=== PATIENT | male | born 1980 | race Caucasian/White ===

== ENCOUNTER 2023-09-18 16:22 | Outpatient (AMB) | payer OTHER, SELFPAY ==
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
== END 2023-09-18 16:24 | disposition home or self-care (01) ==
LOC: HO.HOP 16:22
PROVIDERS: Visit Provider Clinical Nurse Specialist Psychiatric/Mental Health
DX: F40.01 Agoraphobia with panic disorder (principal); F42.9 Obsessive-compulsive disorder, unspecified; F43.10 Post-traumatic stress disorder, unspecified
CPT/HCPCS: 99443

== ENCOUNTER → 2023-09-18 16:22 | Outpatient (BNVA) | payer OTHER, SELFPAY | PROVIDERS: Visit Provider Clinical Nurse Specialist Psychiatric/Mental Health ==

== ENCOUNTER 2023-10-22 11:11 | Outpatient (AMB) | payer OTHER, SELFPAY ==
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
== END 2023-10-22 12:15 | disposition home or self-care (01) ==
LOC: HO.HOP 11:11
PROVIDERS: PCP Internal Medicine; Visit Provider Clinical Nurse Specialist Psychiatric/Mental Health
DX: F40.01 Agoraphobia with panic disorder (principal); F42.2 Mixed obsessional thoughts and acts; F31.32 Bipolar disorder, current episode depressed, moderate; F41.0 Panic disorder [episodic paroxysmal anxiety]; F43.10 Post-traumatic stress disorder, unspecified
CPT/HCPCS: 99214

== ENCOUNTER → 2023-10-22 11:11 | Outpatient (BNVA) | payer OTHER, SELFPAY | PROVIDERS: PCP Internal Medicine; Visit Provider Clinical Nurse Specialist Psychiatric/Mental Health | DX: F40.01 Agoraphobia with panic disorder (principal); F42.9 Obsessive-compulsive disorder, unspecified; F42.2 Mixed obsessional thoughts and acts; F31.32 Bipolar disorder, current episode depressed, moderate; F43.10 Post-traumatic stress disorder, unspecified | CPT/HCPCS: 99212 ==

== ENCOUNTER 2023-11-20 09:53 | Outpatient (AMB) | payer OTHER, SELFPAY ==
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
== END 2023-11-20 11:17 | disposition home or self-care (01) ==
LOC: HO.HOP 09:53
PROVIDERS: PCP Internal Medicine; Visit Provider Clinical Nurse Specialist Psychiatric/Mental Health
DX: F42.2 Mixed obsessional thoughts and acts (principal); F43.10 Post-traumatic stress disorder, unspecified; F41.0 Panic disorder [episodic paroxysmal anxiety]
CPT/HCPCS: 99214

== ENCOUNTER → 2023-11-20 09:53 | Outpatient (BNVA) | payer OTHER, SELFPAY | PROVIDERS: PCP Internal Medicine; Visit Provider Clinical Nurse Specialist Psychiatric/Mental Health | DX: F42.2 Mixed obsessional thoughts and acts (principal); F43.10 Post-traumatic stress disorder, unspecified; F41.0 Panic disorder [episodic paroxysmal anxiety] | CPT/HCPCS: 99212 ==

== ENCOUNTER 2023-12-18 11:15 | Outpatient (AMB) | payer OTHER, SELFPAY ==
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
== END 2023-12-18 12:50 | disposition home or self-care (01) ==
LOC: HO.HOP 11:15
PROVIDERS: PCP Internal Medicine; Visit Provider Clinical Nurse Specialist Psychiatric/Mental Health
DX: F42.9 Obsessive-compulsive disorder, unspecified (principal); F43.10 Post-traumatic stress disorder, unspecified; F32.9 Major depressive disorder, single episode, unspecified
CPT/HCPCS: 99215

== ENCOUNTER → 2023-12-18 11:15 | Outpatient (BNVA) | payer OTHER, SELFPAY | PROVIDERS: PCP Internal Medicine; Visit Provider Clinical Nurse Specialist Psychiatric/Mental Health | DX: Z71.89 Other specified counseling (principal); F32.A Depression, unspecified; F43.10 Post-traumatic stress disorder, unspecified; F42.9 Obsessive-compulsive disorder, unspecified; Z91.51 Personal history of suicidal behavior; Z79.899 Other long term (current) drug therapy | CPT/HCPCS: 99212 ==

== ENCOUNTER 2024-01-01 11:01 | Outpatient (AMB) | payer OTHER, SELFPAY ==
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
== END 2024-01-01 11:42 | disposition home or self-care (01) ==
LOC: HO.HOP 11:01
PROVIDERS: PCP Internal Medicine; Visit Provider Clinical Nurse Specialist Psychiatric/Mental Health
DX: F41.0 Panic disorder [episodic paroxysmal anxiety] (principal); F43.11 Post-traumatic stress disorder, acute; F42.2 Mixed obsessional thoughts and acts
CPT/HCPCS: 99215

== ENCOUNTER → 2024-01-01 11:01 | Outpatient (BNVA) | payer OTHER, SELFPAY | PROVIDERS: PCP Internal Medicine; Visit Provider Clinical Nurse Specialist Psychiatric/Mental Health | DX: F41.0 Panic disorder [episodic paroxysmal anxiety] (principal); F43.10 Post-traumatic stress disorder, unspecified; F42.2 Mixed obsessional thoughts and acts | CPT/HCPCS: 99212 ==

== ENCOUNTER 2024-01-21 10:50 | Outpatient (AMB) | payer OTHER, SELFPAY ==
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
== END 2024-01-21 11:25 | disposition home or self-care (01) ==
LOC: HO.HOP 10:50
PROVIDERS: PCP Internal Medicine; Visit Provider Clinical Nurse Specialist Psychiatric/Mental Health
DX: F41.0 Panic disorder [episodic paroxysmal anxiety] (principal); F31.32 Bipolar disorder, current episode depressed, moderate; F43.10 Post-traumatic stress disorder, unspecified; F42.2 Mixed obsessional thoughts and acts
CPT/HCPCS: 99214

== ENCOUNTER → 2024-01-21 10:50 | Outpatient (BNVA) | payer OTHER, SELFPAY | PROVIDERS: PCP Internal Medicine; Visit Provider Clinical Nurse Specialist Psychiatric/Mental Health | DX: F31.32 Bipolar disorder, current episode depressed, moderate (principal); F41.0 Panic disorder [episodic paroxysmal anxiety]; F43.10 Post-traumatic stress disorder, unspecified; F42.2 Mixed obsessional thoughts and acts; F42.9 Obsessive-compulsive disorder, unspecified; Z91.51 Personal history of suicidal behavior | CPT/HCPCS: 99212 ==

== ENCOUNTER 2024-02-18 11:28 | Outpatient (AMB) | payer OTHER, SELFPAY ==
--- OUTSIDE RECORDS SUMMARY | 2024-02-18 11:30 | XMS_ITS | Continuity of Care Document ---
Author Organization [facility] ter Address [address] [place] [id number]- Care Team Providers Care Poker Prop Player Name Role Phone Randall Rodriguez MD Primary Care Physician [phone] Encounter [facility] [place] Date(s): 02/01/24 - 02/02/[address] [address]- Encounter Diagnosis Alcohol intoxication(Final) - 02/02/24 Discharge Disposition: A-D/C Home Attending Physician: Nery Sofia MD Admitting Physician: Nery Sofia MD Referring Physician: Not on Staff, Referring MD Allergies, Adverse Reactions, Alerts Substance Reaction Severity Status Tylenol 1 Active 1FOAMY MUCUS VOMITING Vital Signs Most recent to oldest [Reference Range]: 1 Oxygen Saturation [94-100 %] 98 % (02/01/24 11:22 PM) Pulse Rate [55-90 bpm] 97 bpm *H* (02/01/24 11:22 PM) Blood Pressure [90-138/55-84 mm Hg] 133/ 84mm Hg (02/01/24 11:22 PM) Respiratory Rate [16-30 br/min] 20 br/mi n (02/01/24 11:22 PM) Temperature [96.8-100.4 DegF] 98.4 DegF (02/01/24 11:22 PM) Mode of Delivery (Oxygen) Room air (02/01/24 11:22 PM) Temperature Route Oral (02/01/24 11:22 PM) Note * Nery Sofia MD: PERFORM, SIGN, VERIFY Event Display: Patient Education Handout Authored Date: * Nery Sofia MD: PERFORM Event Display: Patient Education Leaflets Authored Date: Understanding Asthma and Other Health Conditions ?? DM500 Understanding Asthma and Other Health Conditions Some health problems happen more often in people with asthma. The problems can make asthma symptomsworse. Symptoms can be harder to control. Talk with your healthcare provider about how other healthproblems might be affecting your asthma. And ask your healthcare provider for help quitting if you do smoke. Smoking makes your asthma and other health problems worse. Upper respiratory problems Problems with your nose, sinuses, or throat can make your asthma symptoms worse. These upper respiratory problems can include a cold, sore throat, and the flu. You can help to prevent these illnesses by washing your hands often. Also try to stay away from people who are sick. You and others around you should cover your nose and mouth when coughing or sneezing. You can also use a hand casting cleaner. Make sure that has at least 60% alcohol in it if you can't washyour hands with soap and water. Many offices and businesses have them available for use. You can also keep small bottles at work, in your car, or in your purse. And stay up-to-date on vaccines, as directed by your healthcare provider. Get a flu shot every year. Many people with asthma also have long-term problems with their nose (rhinitis) or sinuses (chronicsinusitis). These problems can give you a runny or stuffy nose, sneezing, sore throat, or coughing.Or even a headache. These problems may also make your asthma worse. The symptoms may be from infections or allergies. (See Allergies below.) Tell your healthcare provider if you have any of these symptoms. There are medicines and other treatments available. ?? Lower respiratory problems Some long-term (chronic) lower respiratory problems that can affect asthma include COPD (chronic obstructive pulmonary disease), bronchopulmonary aspergillosis, and vocal cord dysfunction. Conditions in children that could be linked to asthma include: ??? RSV (respiratory syncytial virus) ??? Breathing in an object that gets stuck in the airways or lungs. This is called foreign object aspiration. ??? Bronchopulmonary dysplasia. This is a chronic lung condition that is often due to being born prematurely. ??? Cystic fibrosis Talk with your healthcare provider if you were diagnosed with any of these health conditions as an adult or as a child. Ask about available treatments to help manage asthma. ?? Allergies Asthma may be set off by allergies. Allergies are caused by things in the environment that you breathe in. These are called allergens. The allergens that cause asthma in some people are commonly found indoors and outdoors. For example, some people are allergic to dust, animals, or insects. The bestthing you can do is try to stay away from those things that make your asthma worse. That isn't easy. Your healthcare provider may advise allergy testing. This can help you learn what is causing your asthma to get worse. Talk with your provider if allergies are found. They can help you figure out ways to reduce your contact with your allergens. They can also discuss treatment choices for allergic a sthma. ?? Acid reflux Many people with asthma also have acid reflux. This is also called gastroesophageal reflux disease (GERD). GERD occurs when stomach acid backs up in the tube that carries food to the stomach (the esophagus). This acid can irritate your airways. The symptoms of GERD may be heartburn, a sour taste, co ughing, or a hoarse voice. Symptoms may be worse at night if you have asthma. Your healthcare provider can advise treatment. This may include changes in your diet. Or in your medicine. ?? Being overweight Asthma may be worse in people who are overweight. Losing weight may help ease your asthma symptoms.It is also a hard thing to do. Your healthcare provider can advise treatment to help you lose weight. Important parts of a plan to reach a health weight include making healthy food choices and exercising every day. Having emotional support from friends and family is important too. ?? Obstructive sleep apnea Obstructive sleep apnea is a blockage in the airways. It causes trouble breathing during sleep. People with obstructive sleep apnea often snore very loudly. They sound like they stop breathing while they sleep. They also feel tired during the day. This is true even if they slept at night. It's morecommon in people who are overweight. But it can happen to anyone. It is also linked to some serioushealth problems. And it may be present in people with asthma that's hard to control. You may need tests to see if your symptoms are from asthma, obstructive sleep apnea, or both. ?? Stress and depression Stress and depression can both make asthma harder to manage. Talk with your healthcare provider if you are having trouble dealing with stress. Also talk with your provider if you are having symptoms of depression. You can???t get rid of all stress. But you can learn to manage it better. Many treatments can help depression. These can include counseling and medicines. ?? Last Reviewed Date: 2023 ?? [employer]. All rights reserved. This information is not intended as a substitute for professional medical care. Always follow your healthcare professional's instructions. ?? * Kimberlyn FRIEDMAN, Nery Beal: PERFORM Event Display: Patient Education Leaflets Authored Date: [id number] Alcohol Intoxication ?? [id number] Alcohol Intoxication Alcohol intoxication is very serious. It occurs when you drink alcohol faster than your liver can break it down. Severe intoxication is a medical emergency. It's also called alcohol overdose or alcohol poisoning. It can lead to . Here are some mares facts: ??? It can take 10 minutes or more??to start??to??feel the effects of a drink. So it's easy to drink more than you planned. Binge drinking can lead to an alcohol overdose. Binge drinking is having: o5 or more drinks over a short time for men o 4 or more drinks over a short time for women ??? One drink may be more than 1 serving of alcohol. In some cases, a drink can be 2 to 4 servings. This depends on the type of drink. ??? It takes about 1 hour for your body to break down 1 serving of alcohol. If you have more than 1 drink, it can take a few hours or more. ??? People with alcohol abuse disorders are more likely to get alcohol poisoning. But it can happen to anyone who drinks too much alcohol. Even a first-time drinker is at risk. ??? Many things affect how drinks will affect you. These include: o If you've eaten o How fast you drink o Your weight o How much you normally drink (or not)o Medicines you are taking o If you have a chronic disease o If you are male or female o How old you are Symptoms of alcohol intoxication Mild intoxication ??? Feel more relaxed, less tense ??? Slightly slurred speech ??? Sleepiness ??? Poor motor skills Moderate intoxication ??? Changing behavior, aggression, depression ??? Poor judgment ??? Confusion ??? Trouble focusing ??? Poor balance and coordination ??? Worsening slurred speech Severe intoxication ??? Vomiting ??? Seizures ??? Fainting or passing out (unconscious) ??? Cold, clammy skin ??? Slow or irregular breathing ??? Low body temperature (hypothermia) ??? Coma ?? Health effects Alcohol causes health problems.??This can happen after only drinking a little. There is no set number of drinks or amount of alcohol that's too much.??How much you drink at one time affects your health. And so does drinking often. Alcohol affects your whole body in these ways: ??? Brain.??Alcohol can harm parts of the brain that affect your balance, memory, thinking, and feelings. It can cause memory loss, blackouts, depression, agitation, sleep cycle changes, and seizures. These changes may or may not go away. ??? Heart and vascular system.??Alcohol can damage heart muscle. This can cause the heart muscle to weaken and stretch (cardiomyopathy). This can lead to: o Trouble breathing o Irregular heartbeat o Atrial fibrillation o Leg swelling o Heart failure Alcohol also makes the blood vessels stiffen. This causes high blood pressure. All of these problems raise your risk for heart attacks or strokes. ??? Liver.??Alcohol causes fat to build up in the liver. This affects how the liver works. And it raises the risk for hepatitis. This condition leads to belly pain, appetite loss, yellow skin and eyes (jaundice), and bleeding problems. It also leads to harmful changes in the liver. These include??liver fibrosis and cirrhosis. This can affect your ability to fight off infections. These liver changes stop it from removing toxins in your blood. This can cause a brain disease called encephalopathy. ??? Pancreas.??Alcohol can cause inflammation of the pancreas (pancreatitis). It can lead to belly pain, fever, and diabetes. ??? Immune system.??Alcohol weakens your immune system. This makes it harder to fight off infections and colds. You'll also have a higherrisk of some infections. ??? Cancer risk.??Alcohol raises your risk of some types of cancer. They include cancer of the: o Mouth o Esophagus o Pharynx o Larynx o Liver o Breast ? Sexual function.??Alcohol abuse can also lead to sexual problems. There is no safe level of alcohol use for people who are or thinking of getting . Alcohol use in may cause lifelong harm to the baby. So alcohol should be avoided. It can also cause a group of defects called alcohol spectrum disorder. These defects can include physical problems. And also behavior and learning problems. ?? Home care for alcohol intoxication Follow these tips to care for yourself at home: ??? Don't drink any more alcohol. ??? Don't drive??until all effects of the alcohol have worn off. ??? Don't use machinery that can cause injuries. ??? Get lots of rest over the next few days. ??? Drink plenty of water and other drinks that don't have alcohol. ??? Try to eat regular meals. If you have been drinking a lot every day, you may have alcohol withdrawal. Symptoms often last 3 to 4 days. They may include: ??? Nervousness ??? Shakiness ??? Nausea ??? Sweating ??? Sleeplessness They may also include severe, life-threatening symptoms. These are known as delirium tremens (DTs).DTs typically begin between 48 and 96 hours after the last drink and last 1 to 5 days. They include: ??? Seizures ??? Confusion ??? Seeing or hearing things that are not there (hallucinations) Alcohol withdrawal can cause . Call your healthcare provider before you stop drinking. This isespecially important if you've had DTs during past alcohol withdrawals. They may be able to help you with medicine. They can also refer you to an inpatient detox program. Or stay with family or friends who know when to call for medical help and can support you. If you have severe symptoms, call your provider or call 911 for help (see below). ?? Follow-up care These groups can help you and your loved one: ??? Alcoholics Anonymous (A.A.). Gives support through a self-help fellowship. ?? Find A.A. meetings near you at www.aa.org. ??? [employer]. ?? Gives support to families at www.al-anon.org . Or call 058-723-3496. ??? [employer] [facility] ( Self- Management and Recovery Training). A nationwide abstinence-oriented support group for people with addictive issues. This free program is focused on motivation to change, urge control, and living a balanced life. For more information and meetings near you, go to www.Biexdiao.com.org/ ??? Substance Abuse and Mental Health Services Administration ([facility]) Treatment Well Treatment Offsider. Free information on treatment resources in your area at https://findtreatment.gov/. Or call 977-253-7989. Call 911 Call 911 if any of these occur: ??? Trouble breathing or slow irregular breathing ??? Chest pain ??? Sudden weakness on 1 side of your body or sudden trouble speaking ??? Heavy bleeding or vomiting blood ??? Very sleepy or having trouble waking up ??? Fainting ??? Fast heart rate ??? Seizure ?? When to get medical advice Call your healthcare provider right away if any of these occur: ??? Severe shakiness? Fever of100.4??F (38??C) or higher, or as advised by your provider ??? Confusion or hallucinations ??? Painin your upper belly that gets worse ??? Repeated vomiting ?? Last Reviewed Date: 2021 ?? 9318-9911 The [employer]. All rights reserved. This information is not intended as a substitute for professional medical care. Always follow your healthcare professional's instructions. ?? Patient Care team information Care Team Personnel Name: Randall Rodriguez MD Position: S Physician - Primary Care Member Role: PCP Address: Address: [address] [place] [id number]
--- OUTSIDE RECORDS SUMMARY | 2024-02-18 11:30 | XMS_ITS | Continuity of Care Document ---
Author Organization [facility] ter Address [address] [place] [id number]- Care Team Providers Care Estate Agent Name Role Phone Randall Rodriguez MD Primary Care Physician [phone] Encounter [facility] [place] Date(s): 01/25/22 - 01/25/[address] [address]- Encounter Diagnosis Infected insect bite(Final) - 01/25/22 Discharge Disposition: A-D/C Home Attending Physician: Milton Mccoy MD Admitting Physician: Milton Mccoy MD Referring Physician: Not on Staff, Referring MD Allergies, Adverse Reactions, Alerts Substance Reaction Severity Status Tylenol 1 Active 1FOAMY MUCUS VOMITING Medications doxycycline hyclate 100 mg oral capsule 1 capsule = 100 mg, By Mouth, 2 times a day, for 7 days, # 14 capsule, 0 Refills, Acute 02/01/22 12:45:00 EDT, 01/25/22 12:45:00 EDT, Capsule, [id number], Partial fill upon patient request ifthe prescription is for a schedule II opioid drug. Start Date: 01/25/22 Stop Date: 02/01/22 Status: Ordered Vital Signs Most recent to oldest [Reference Range]: 1 2 3 Oxygen Saturation [94-100 %] 99 % (01/25/22 1:05 PM) 96 % (01/25/22 9:53 AM) 98 % (01/25/22 9:43 AM) Pulse Rate [55-90 bpm] 90 bpm (01/25/22 1:05 PM) 104 bpm *H* (01/25/22 9:53 AM) 133 bpm *H* (01/25/22 9:43 AM) Blood Pressure [90-138/55-84 mm Hg] 146/93mm Hg *H* (01/25/22 1:05 PM) 129/79mm Hg (01/25/22 9:53 AM) Respiratory Rate [16-30 br/min] 17 br/min (01/25/22 1:05 PM) 17 br/min (01/25/22 9:53 AM) Temperature [96.8-100.4 DegF] 98.6 DegF (01/25/22 1:05 PM) 98.7 DegF (01/25/22 9:53 AM) Mode of Delivery (Oxygen) Room air (01/25/22 1:05 PM) Room air (01/25/22 9:53 AM) Room air (01/25/22 9:43 AM) Blood pressure sites Arm, right (01/25/22 1:05 PM) Arm, right (01/25/22 9:53 AM) Temperature Route Oral (01/25/22 1:05 PM) Oral (01/25/22 9:53 AM)
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
== END 2024-02-18 11:39 | disposition home or self-care (01) ==
LOC: HO.HOP 11:28
PROVIDERS: PCP Internal Medicine; Visit Provider Clinical Nurse Specialist Psychiatric/Mental Health
DX: F41.0 Panic disorder [episodic paroxysmal anxiety] (principal); F43.10 Post-traumatic stress disorder, unspecified; F42.2 Mixed obsessional thoughts and acts
CPT/HCPCS: 99214

== ENCOUNTER → 2024-02-18 11:28 | Outpatient (BNVA) | payer OTHER, SELFPAY | PROVIDERS: PCP Internal Medicine; Visit Provider Clinical Nurse Specialist Psychiatric/Mental Health | DX: F32.A Depression, unspecified (principal); F41.0 Panic disorder [episodic paroxysmal anxiety]; F43.10 Post-traumatic stress disorder, unspecified; F42.2 Mixed obsessional thoughts and acts; F42.9 Obsessive-compulsive disorder, unspecified | CPT/HCPCS: 99212 ==

== ENCOUNTER 2024-03-12 11:19 | Outpatient (AMB) | payer OTHER, SELFPAY ==
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
== END 2024-03-12 12:26 | disposition home or self-care (01) ==
LOC: HO.HOP 11:20
PROVIDERS: PCP Internal Medicine; Visit Provider Clinical Nurse Specialist Psychiatric/Mental Health
DX: F31.32 Bipolar disorder, current episode depressed, moderate (principal); F41.0 Panic disorder [episodic paroxysmal anxiety]; F43.10 Post-traumatic stress disorder, unspecified; F42.2 Mixed obsessional thoughts and acts
CPT/HCPCS: 99214

== ENCOUNTER → 2024-03-12 11:19 | Outpatient (BNVA) | payer OTHER, SELFPAY | PROVIDERS: PCP Internal Medicine; Visit Provider Clinical Nurse Specialist Psychiatric/Mental Health | DX: F31.32 Bipolar disorder, current episode depressed, moderate (principal); F41.0 Panic disorder [episodic paroxysmal anxiety]; F43.10 Post-traumatic stress disorder, unspecified; F42.2 Mixed obsessional thoughts and acts | CPT/HCPCS: 99212 ==

== ENCOUNTER 2024-04-01 10:02 | Outpatient (AMB) | payer OTHER, SELFPAY ==
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
== END 2024-04-01 10:35 | disposition home or self-care (01) ==
LOC: HO.HOP 10:02
PROVIDERS: PCP Internal Medicine; Visit Provider Clinical Nurse Specialist Psychiatric/Mental Health
DX: F42.2 Mixed obsessional thoughts and acts (principal); F43.10 Post-traumatic stress disorder, unspecified; F31.32 Bipolar disorder, current episode depressed, moderate; F41.0 Panic disorder [episodic paroxysmal anxiety]
CPT/HCPCS: 99214

== ENCOUNTER → 2024-04-01 10:02 | Outpatient (BNVA) | payer OTHER, SELFPAY | PROVIDERS: PCP Internal Medicine; Visit Provider Clinical Nurse Specialist Psychiatric/Mental Health | DX: F31.32 Bipolar disorder, current episode depressed, moderate (principal); F42.2 Mixed obsessional thoughts and acts; F43.10 Post-traumatic stress disorder, unspecified; F41.0 Panic disorder [episodic paroxysmal anxiety] | CPT/HCPCS: 99212 ==

== ENCOUNTER 2024-04-29 09:57 | Outpatient (AMB) | payer OTHER, SELFPAY ==
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
== END 2024-04-29 10:49 | disposition home or self-care (01) ==
LOC: HO.HOP 09:57
PROVIDERS: PCP Internal Medicine; Visit Provider Clinical Nurse Specialist Psychiatric/Mental Health
DX: F31.32 Bipolar disorder, current episode depressed, moderate (principal); F41.0 Panic disorder [episodic paroxysmal anxiety]; F43.10 Post-traumatic stress disorder, unspecified; F42.2 Mixed obsessional thoughts and acts
CPT/HCPCS: 99214

== ENCOUNTER → 2024-04-29 09:57 | Outpatient (BNVA) | payer OTHER, SELFPAY | PROVIDERS: PCP Internal Medicine; Visit Provider Clinical Nurse Specialist Psychiatric/Mental Health | DX: F31.32 Bipolar disorder, current episode depressed, moderate (principal); F41.0 Panic disorder [episodic paroxysmal anxiety]; F43.10 Post-traumatic stress disorder, unspecified; F42.2 Mixed obsessional thoughts and acts | CPT/HCPCS: 99212 ==

== ENCOUNTER 2024-05-20 09:50 | Outpatient (AMB) | payer OTHER, SELFPAY ==
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
== END 2024-05-20 09:52 | disposition home or self-care (01) ==
LOC: HO.HOP 09:50
PROVIDERS: PCP Internal Medicine; Visit Provider Clinical Nurse Specialist Psychiatric/Mental Health
DX: F43.10 Post-traumatic stress disorder, unspecified (principal); F42.2 Mixed obsessional thoughts and acts; F41.0 Panic disorder [episodic paroxysmal anxiety]
CPT/HCPCS: 99214

== ENCOUNTER → 2024-05-20 09:50 | Outpatient (BNVA) | payer OTHER, SELFPAY | PROVIDERS: PCP Internal Medicine; Visit Provider Clinical Nurse Specialist Psychiatric/Mental Health | DX: F32.A Depression, unspecified (principal); F43.10 Post-traumatic stress disorder, unspecified; F42.2 Mixed obsessional thoughts and acts; F42.9 Obsessive-compulsive disorder, unspecified; F41.0 Panic disorder [episodic paroxysmal anxiety]; Z71.89 Other specified counseling; Z91.51 Personal history of suicidal behavior | CPT/HCPCS: 99212 ==

== ENCOUNTER 2024-06-17 09:10 | Outpatient (AMB) | payer OTHER, SELFPAY ==
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
== END 2024-06-17 10:03 | disposition home or self-care (01) ==
LOC: HO.HOP 09:10
PROVIDERS: PCP Internal Medicine; Visit Provider Clinical Nurse Specialist Psychiatric/Mental Health
DX: F41.0 Panic disorder [episodic paroxysmal anxiety] (principal); F43.10 Post-traumatic stress disorder, unspecified; F42.2 Mixed obsessional thoughts and acts; J38.3 Other diseases of vocal cords
CPT/HCPCS: 99214

== ENCOUNTER → 2024-06-17 09:10 | Outpatient (BNVA) | payer OTHER, SELFPAY | PROVIDERS: PCP Internal Medicine; Visit Provider Clinical Nurse Specialist Psychiatric/Mental Health | DX: F41.0 Panic disorder [episodic paroxysmal anxiety] (principal); F43.10 Post-traumatic stress disorder, unspecified; F42.2 Mixed obsessional thoughts and acts; J38.3 Other diseases of vocal cords | CPT/HCPCS: 99212 ==

== ENCOUNTER 2024-07-08 09:20 | Outpatient (AMB) | payer OTHER, SELFPAY ==
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
== END 2024-07-08 10:03 | disposition home or self-care (01) ==
LOC: HO.HOP 09:20
PROVIDERS: PCP Internal Medicine; Visit Provider Clinical Nurse Specialist Psychiatric/Mental Health
DX: F31.32 Bipolar disorder, current episode depressed, moderate (principal); F41.0 Panic disorder [episodic paroxysmal anxiety]; F43.10 Post-traumatic stress disorder, unspecified; F42.2 Mixed obsessional thoughts and acts
CPT/HCPCS: 99214

== ENCOUNTER → 2024-07-08 09:20 | Outpatient (BNVA) | payer OTHER, SELFPAY | PROVIDERS: PCP Internal Medicine; Visit Provider Clinical Nurse Specialist Psychiatric/Mental Health | DX: F31.32 Bipolar disorder, current episode depressed, moderate (principal); F41.0 Panic disorder [episodic paroxysmal anxiety]; F43.10 Post-traumatic stress disorder, unspecified; F42.2 Mixed obsessional thoughts and acts | CPT/HCPCS: 99212 ==

== ENCOUNTER 2024-07-21 09:11 | Outpatient (AMB) | payer OTHER, SELFPAY ==
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
== END 2024-07-21 09:53 | disposition home or self-care (01) ==
LOC: HO.HOP 09:11
PROVIDERS: PCP Internal Medicine; Visit Provider Clinical Nurse Specialist Psychiatric/Mental Health
DX: F31.32 Bipolar disorder, current episode depressed, moderate (principal); F41.0 Panic disorder [episodic paroxysmal anxiety]; F43.10 Post-traumatic stress disorder, unspecified; F42.2 Mixed obsessional thoughts and acts
CPT/HCPCS: 99214

== ENCOUNTER → 2024-07-21 09:11 | Outpatient (BNVA) | payer OTHER, SELFPAY | PROVIDERS: PCP Internal Medicine; Visit Provider Clinical Nurse Specialist Psychiatric/Mental Health | DX: F31.32 Bipolar disorder, current episode depressed, moderate (principal); F41.0 Panic disorder [episodic paroxysmal anxiety]; F43.10 Post-traumatic stress disorder, unspecified; F42.9 Obsessive-compulsive disorder, unspecified | CPT/HCPCS: 99212 ==

== ENCOUNTER → 2024-08-14 10:33 | Outpatient (BNVA) | payer OTHER, SELFPAY | PROVIDERS: PCP Internal Medicine; Visit Provider Clinical Nurse Specialist Psychiatric/Mental Health | DX: F31.32 Bipolar disorder, current episode depressed, moderate (principal); F43.10 Post-traumatic stress disorder, unspecified; F41.0 Panic disorder [episodic paroxysmal anxiety]; F42.2 Mixed obsessional thoughts and acts | CPT/HCPCS: 99212 ==

== ENCOUNTER 2024-09-16 10:14 | Outpatient (AMB) | payer OTHER, SELFPAY ==
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
--- OUTSIDE RECORDS SUMMARY | 2024-09-16 12:01 | XMS_ITS | Data Portability ---
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 Plan of Treatment Reminders Order Date Submit Date Provider Last Modified By Organization Details Last Modified Time Details Appointments None recorded . Lab None recorded . Referral speech therapy referral - Appt 06/13 @ 12pm 2023 024 [facility], [facility] [place], [address], 4 11:27:23 Procedures None recorded . Surgeries None recorded . Imaging None recorded . Medication Orders omeprazo le 20 mg capsule, delayed release 2023 024 [facility]/Pharmacy #[id number], [phone] [place], [address], 4 12:02:19 Patient TargetsNo targets recorded. Patient InstructionsNo instructions recorded. Reason for Referral Appt 06/13 @ 12pm Referring Physician: Tomás Askew, Otolaryngology, Encounter Date: 06/03/2024 Problems Name Problem SNOMED Code Status Onset Date Resolution Date Notes Provider Name and Address Organization Details Recorded Time Chronic hoarseness 6727873635860 Active 2023 TOMÁS Whyte MD 100 [facility] 100, [place], [address] [facility] [place] [facility] 4 11:52:35 Chronic laryngitis 37077796 Active 2023 TOMÁS Whyte MD [address] [address], [place], [address], [place] [facility] 4 11:55:40 Gastroesoph ageal reflux disease without esophagitis 337667694 Active 2023 TOMÁS Whyte MD [address] [address], [place], [address], [place] [facility] 12:00:10 Problem Notes None recorded. Procedures Surgical History Date Name Laterality Status Provider Name and Address Organization Details Recorded Time 06/03/2024 FFL_RE completed TOMÁS ASKEW MD [address], [address], [facility] 06/03/2024 10:29:17 01/29/2024 FFL_RE completed TOMÁS ASKEW MD [address] [place] [address], [address], [facility] - [facility] 01/29/2024 12:01:29 Imaging Results None recorded. Procedure Notes None recorded. Medical Equipment None Reported. Allergies No known drug allergies Medications Name Sig Start Date Stop Date Status Note LastModified by Organization Details LastModified Time clotrimazole 10 mg lianna HOLD 1 LIANNA IN MOUTH FIVE TIMES A DAY active Not Available Not Available No t Available buspirone 5 mg tablet TAKE 1 TABLET BY MOUTH TWICE A DAY active Not Available Not Available No t Available prednisone 5 mg tablet TAKE 2 TABLETS DAILY FOR 3 DAYS THEN ONE TABLET DAILY FOR 3 DAYS DIRECTED active Not Available Not Available No t Available valproic acid 250 mg capsule TAKE 1 CAPSULE BY MOUTH EVERY DAY active Not Available Not Available No t Available amitriptyline 25 mg tablet TAKE 1 TABLET BY MOUTH EVERYDAY AT BEDTIME active Not Available Not Available No t Available oseltamivir 75 mg capsule TAKE 1 CAPSULE BY MOUTH TWICE A DAY active Not Available Not Available No t Available omeprazole 20 mg capsule,delaye d release TAKE 1 CAPSULE BY MOUTH EVERY DAY active Not Available Not Available No t Available alprazolam 2 mg tablet TAKE 2 TABLETS BY MOUTH 3 TIMES A DAY FOR 14 DAYS active Not Available Not Available No t Available albuterol sulfate HFA 90 mcg/actuation aerosol inhaler INHALE 2 PUFFS BY MOUTH 4 TIMES DAILY NEEDED active Not Available Not Available No t Available fluticasone propionate 50 mcg/actuation nasal spray,suspensi on SPRAY 1 SPRAY INTO EACH NOSTRIL EVERY DAY active Not Available Not Available No t Available metronidazole 0.75 % topical gel APPLY A SMALL AMOUNT ONCE A DAY TO THE AFFECTED AREA ON THE FACE active Not Available Not Available No t Available loratadine 10 mg tablet TAKE 1 TABLET BY MOUTH ONCE A DAY NEEDED active Not Available Not Available No t Available rosuvastatin 5 mg tablet TAKE 1 TABLET BY MOUTH EVERYDAY AT BEDTIME active Not Available Not Available No t Available cholecalcifero l (vitamin D3) 50 mcg (2,000 unit) capsule TAKE 1 CAPSULE BY MOUTH EVERY DAY active Not Available Not Available No t Available Vitamin D3 50 mcg (2,000 unit) tablet TAKE 2 TABLETS BY MOUTH EVERY DAY active Not Available Not Available No t Available Wixela Inhub 500 mcg-50 mcg/dose powder for inhalation INHALE 1 PUFF BY MOUTH TWICE DAILY DIRECTED. RINSE MOUTH AFTER USE active Not Available Not Available No t Available Vitals Date Recorded Body height Body mass index (BMI) Body weight Provider Name and Address Organization Details Last Updated DateTime 01/29/2024 167.64 cm 27.4 kg/m2 40278.7 g Anjum Greene [facility] 01/29/2024 11:39:30 Date Recorded Body height Body mass index (BMI) Body weight Provider Name and Address Organization Details Last Updated DateTime 06/03/2024 167.64 cm 26 kg/m2 32558.37 g Anjum Greene [facility] 06/03/2024 10:04:52 Social History None recorded. Functional Status None recorded. Mental Status None recorded. Family History Nothing Reported. Medical History No medical history recorded. Gynecological HistoryNo gynecological history recorded. Obstetrics History GPAL:G 0 P 0 0 0 0 Past Encounters Encounter ID Performer Location Encounter Start Date Encounter Closed Date Diagnosis/Indication Diagnosis SNOMED-CT Code Diagnosis ICD10 Code Diagnosis Note [id number] TOMÁS ASKEW MD [facility] [address] [address] 01/29/2024 10:39:30 01/29/2024 12:26:38 Chronic hoarseness [id number] 105 R49.0 see below. will consider voice therapy if not improved. Chronic laryngitis 78964 006 J37.0 No lesions. Inflammati on noted of arytenoids and posterior pharyngeal wall. Will treat for reflux and reevaluate . Gastroesop hageal reflux disease without esophagitis 017377155 K21.9 Exam was benign. Laryngosco py showed [place] ing. I feel the symptoms are likely due to extra esophageal reflux disease. We will begin a six-week trial of omeprazole which was sent to their pharmacy. We will plan a follow up in 3-4 months to reassess. [id number] TOMÁS ASKEW MD [facility] [address] [address] 06/03/2024 09:49:39 06/03/2024 10:38:38 Chronic hoarseness 1207148192 105 R49.0 Laryngosco py normal. I will refer for voice therapy. Chronic laryngitis [address]164 006 J37.0 Appears improved. Gastroesop hageal reflux disease without esophagitis 836729987 K21.9 Throat pain has improved on omeprazole . He will continue omeprazole for now. Throat pain is likely due to EERD. Once he finishes his current course of omeprazole he should taper off. Health Concerns Section Related Observation LastModified by Organization Detai ls LastModified Time None Recorded Concern Status LastModified by Organization Details LastModified Time None Recorded Advance Directives Directive None Recorded Payers Encounter Date Sequence Insurance Name Policy Number Policy Douglass Covered Member ID Douglass Member ID Guarantor Name 01/29/2024 1 [facility] - [facility] [place] (MEDICARE REPLACEMENT/ADV ANTAGE - HMO) Eliazar Freeman [id number] Eliazar Freeman 06/03/2024 1 [facility] - DOS ON OR AFTER 2022 - [employer] (MEDICARE REPLACEMENT/ADV ANTAGE - HMO) Eliazar Freeman [id number] Eliazar Freeman Notes Date Note Type Note Provider Name and Address Organization Details Recorded Time 01/29/2024 text/html He noted some ac [place] voice change on 07/19. He had laryngitis. Since then the voice has been intermittently hoarse. He has some associated sore throat. He occasionally has some trouble swallowing with food getting stuck. He does not smoke. No recent flux even though he did have heartburn in the past. he was put on prednisone in the past which helped with his voice for 3 weeks. It is not inconsistent. TOMÁS ASKEW MD [address] [place] [address], [address], [place] [facility] 01/29/2024 12:02:19 06/03/2024 text/html He noted some ac [place] voice change on 07/19. He had laryngitis. Since then the voice has been intermittently hoarse. He has some associated sore throat. He occasionally has some trouble swallowing with food getting stuck. He does not smoke. No recent flux even though he did have heartburn in the past. he was put on prednisone in the past which helped with his voice for 3 weeks. It is not inconsistent. TOMÁS ASKEW MD [address] [place] [address],[address] [address], [place], [address], [facility] - [facility] 06/03/2024 10:37:33 OBGyn Episode No OBEpisode recorded.
== END 2024-09-16 10:15 | disposition home or self-care (01) ==
LOC: HO.HOP 10:14
PROVIDERS: PCP Internal Medicine; Visit Provider Clinical Nurse Specialist Psychiatric/Mental Health
DX: F41.0 Panic disorder [episodic paroxysmal anxiety] (principal); F43.10 Post-traumatic stress disorder, unspecified; F42.2 Mixed obsessional thoughts and acts
CPT/HCPCS: 99214

== ENCOUNTER → 2024-09-16 10:14 | Outpatient (BNVA) | payer OTHER, SELFPAY | PROVIDERS: PCP Internal Medicine; Visit Provider Clinical Nurse Specialist Psychiatric/Mental Health | DX: F41.0 Panic disorder [episodic paroxysmal anxiety] (principal); F43.10 Post-traumatic stress disorder, unspecified; F42.2 Mixed obsessional thoughts and acts; F42.9 Obsessive-compulsive disorder, unspecified | CPT/HCPCS: 99212 ==

== ENCOUNTER 2024-10-14 09:53 | Outpatient (AMB) | payer OTHER, SELFPAY ==
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
--- OUTSIDE RECORDS SUMMARY | 2024-10-14 11:23 | XMS_ITS | Data Portability ---
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 Plan of Treatment Reminders Order Date Submit Date Provider Last Modified By Organization Details Last Modified Time Details Appointments None recorded . Lab None recorded . Referral speech therapy referral - Appt 06/13 @ 12pm 2023 024 [facility], [facility] [place], [address], 4 11:27:23 Procedures None recorded . Surgeries None recorded . Imaging None recorded . Medication Orders omeprazo le 20 mg capsule, delayed release 2023 024 [facility]/Pharmacy #[id number], [phone] [place], [address], 4 12:02:19 Patient TargetsNo targets recorded. Patient InstructionsNo instructions recorded. Reason for Referral Appt 06/13 @ 12pm Referring Physician: Tomás Askew, Otolaryngology, Encounter Date: 06/03/2024 Problems Name Problem SNOMED Code Status Onset Date Resolution Date Notes Provider Name and Address Organization Details Recorded Time Chronic hoarseness 0855896295627 Active 2023 TOMÁS hWyte MD 100 [facility] 100, [place], [address] [facility] [place] - [facility] 4 11:52:35 Chronic laryngitis 43749265 Active 2023 TOMÁS Whyte MD [address] [address], [place], [address], [place] [facility] 11:55:40 Gastroesoph ageal reflux disease without esophagitis 498839111 Active 2023 TOMÁS Whyte MD [address] [address], [place], [address], [place] [facility] 12:00:10 Problem Notes None recorded. Procedures Surgical History Date Name Laterality Status Provider Name and Address Organization Details Recorded Time 06/03/2024 FFL_RE completed TOMÁS ASKEW MD [address], [address], [facility] 06/03/2024 10:29:17 01/29/2024 FFL_RE completed TOMÁS ASKEW MD [address], [address], [facility] - [facility] 01/29/2024 12:01:29 Imaging Results None recorded. Procedure [...] TAKE 1 CAPSULE BY MOUTH EVERY DAY 2024 active Not Available Not Available Not Avai lable alprazolam 2 mg tablet TAKE 2 TABLETS [...] Updated DateTime 01/29/2024 167.64 cm 27.4 kg/m2 70762.7 g Anjum Greene [facility] 01/29/2024 11:39:30 Date Recorded Body height Body mass index (BMI) Body weight Provider Name and Address Organization Details Last Updated DateTime 06/03/2024 167.64 cm 26 kg/m2 68447.37 g Anjum Greene [place] - [facility] 06/03/2024 10:04:52 Social History None recorded. Functional [...] Note [id number] TOMÁS ASKEW MD [facility] [address] [address] 01/29/2024 10:39:30 01/29/2024 12:26:38 Chronic hoarseness 5604848615 105 R49.0 see below. will consider voice therapy if not improved. Chronic laryngitis 31433 006 J37.0 No lesions. Inflammati on noted of arytenoids and posterior pharyngeal wall. Will treat for reflux and reevaluate . Gastroesop hageal reflux disease without esophagitis 525385536 K21.9 Exam was benign. Laryngosco py showed [place] ing. I feel the symptoms are likely due to extra esophageal reflux disease. We will begin a six-week trial of omeprazole which was sent to their pharmacy. We will plan a follow up in 3-4 months to reassess. [id number] TOMÁS ASKEW MD [facility] [address] [address] 06/03/2024 09:49:39 06/03/2024 10:38:38 Chronic hoarseness 3066140670 105 R49.0 Laryngosco py normal. I will refer for voice therapy. Chronic laryngitis 22051 006 J37.0 Appears improved. Gastroesop hageal reflux disease without esophagitis 215088807 K21.9 Throat pain has improved on omeprazole [...] Douglass Member ID Guarantor Name 01/29/2024 1 [employer] - [facility] [place] (MEDICARE REPLACEMENT/ADV ANTAGE - HMO) Eliazar Freeman [id number] Eliazar Freeman 06/03/[address] [facility] - DOS ON OR AFTER 2022 - ONE [employer] (MEDICARE REPLACEMENT/ADV ANTAGE - HMO) Eliazar Freeman [id number] Eliazar Freeman Notes Date Note Type Note Provider Name and Address Organization Details Recorded Time 01/29/2024 text/html He noted some ac eileen voice change on 07/19. He had laryngitis. [...] It is not inconsistent. TOMÁS ASKEW MD 100 [facility],[address], [address], [place] - [facility] 01/29/2024 12:02:19 06/03/2024 text/html He noted some ac eielen voice change on 07/19. He had laryngitis. [...] It is not inconsistent. TOMÁS ASKEW MD 100 [facility],[address] [address], [place], [address], [place] [facility] 06/03/2024 10:37:33 OBGyn Episode No OBEpisode recorded.
== END 2024-10-14 11:17 | disposition home or self-care (01) ==
LOC: HO.HOP 09:53
PROVIDERS: PCP Internal Medicine; Visit Provider Clinical Nurse Specialist Psychiatric/Mental Health
DX: F41.0 Panic disorder [episodic paroxysmal anxiety] (principal); F43.10 Post-traumatic stress disorder, unspecified; F42.2 Mixed obsessional thoughts and acts
CPT/HCPCS: 99214

== ENCOUNTER → 2024-10-14 09:53 | Outpatient (BNVA) | payer OTHER, SELFPAY | PROVIDERS: PCP Internal Medicine; Visit Provider Clinical Nurse Specialist Psychiatric/Mental Health | DX: F41.0 Panic disorder [episodic paroxysmal anxiety] (principal); F43.10 Post-traumatic stress disorder, unspecified; F42.2 Mixed obsessional thoughts and acts; Z71.89 Other specified counseling | CPT/HCPCS: 99212 ==

== ENCOUNTER 2024-11-11 09:37 | Outpatient (AMB) | payer OTHER, SELFPAY ==
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
--- OUTSIDE RECORDS SUMMARY | 2024-11-11 10:36 | XMS_ITS | Data Portability ---
Author Organization [place] - [facility], Allergy Address [address] [place] [address] Care Team Providers Care Analytical Sciences Director Name Role Phone DICKSON CHU Primary Care Provider [phone] Assessment No assessment recorded. Plan of Treatment Reminders Order Date Submit Date Provider Last Modified By Organization Details Last Modified Time Details Appointments None recorded . Lab None recorded . Referral speech therapy referral - Appt 06/13 @ 12pm 2023 024 [facility], [facility] Isabelle Acuña, [address] Floor, [place], [address], 4 11:27:23 Procedures None recorded . Surgeries None recorded . Imaging None recorded . Medication Orders omeprazo le 20 mg capsule, delayed release 2023 024 [facility]/Pharmacy #[id number], [phone] [place], [address], 4 12:02:19 Patient TargetsNo targets recorded. Patient InstructionsNo instructions recorded. Reason for Referral Appt 06/13 @ 12pm Referring Physician: Tomás Askew, Otolaryngology, Encounter Date: 06/03/2024 Problems Name Problem SNOMED Code Status Onset Date Resolution Date Notes Provider Name and Address Organization Details Recorded Time Chronic hoarseness 7249089229035 Active 2023 TOMÁS Whyte MD [address], [address] [facility] [place] - [facility] 4 11:52:35 Chronic laryngitis 18455612 Active 2023 TOMÁS Whyte MD [address] [address], [place], [address], [facility] - [facility] [place] 11:55:40 Gastroesoph ageal reflux disease without esophagitis 973880462 Active 2023 TOMÁS Whyte MD [address] [address], [place], [address], [facility] - [facility] [place] 12:00:10 Problem Notes None recorded. Procedures Surgical History Date Name Laterality Status Provider Name and Address Organization Details Recorded Time 06/03/2024 FFL_RE completed TOMÁS ASKEW MD [address] [place] [address], [phone], [facility] [place] 06/03/2024 10:29:17 01/29/2024 FFL_RE completed TOMÁS ASKEW MD [address] [place] [address], [phone], [facility] 01/29/2024 12:01:29 Imaging Results None recorded. [...] Updated DateTime 01/29/2024 167.64 cm 27.4 kg/m2 29756.7 g Anjum Greene [facility] 01/29/2024 11:39:30 Date Recorded Body height Body mass index (BMI) Body weight Provider Name and Address Organization Details Last Updated DateTime 06/03/2024 167.64 cm 26 kg/m2 30767.37 g Anjum Greene [facility] 06/03/2024 10:04:52 Social History None recorded. [...] Note [id number] TOMÁS ASKEW MD [facility] [address] [address] 01/29/2024 10:39:30 01/29/2024 12:26:38 Chronic hoarseness [id number] 105 R49.0 see below. will consider voice therapy if not improved. Chronic laryngitis 79449 006 J37.0 No lesions. Inflammati on noted of arytenoids and posterior pharyngeal wall. Will treat for reflux and reevaluate . Gastroesop hageal reflux disease without esophagitis [id number] K21.9 Exam was benign. Laryngosco py showed [place] ing. I feel the symptoms are likely due to extra esophageal reflux disease. We will begin a six-week trial of omeprazole which was sent to their pharmacy. We will plan a follow up in 3-4 months to reassess. [id number] TOMÁS ASKEW MD [facility] [address] [address] 06/03/2024 09:49:39 06/03/2024 10:38:38 Chronic hoarseness [id number] 105 R49.0 Laryngosco py normal. I will refer for voice therapy. Chronic laryngitis 19863 006 J37.0 Appears improved. Gastroesop hageal reflux disease without esophagitis [id number] K21.9 Throat pain has improved on omeprazole [...] Guarantor Name 01/29/2024 1 [employer] [facility] [place] [place] (MEDICARE [place]PLAC[place]/ADV ANTAGE - HMO) Eliazar Freeman [id number] Eliazar Freeman 06/03/2024 1 [facility] - DOS ON OR AFTER 2022 - ONE [employer] (MEDICARE REPLACEMENT/ADV ANTAGE - HMO) Eliazar Freeman [id number] Eliazar Freeman Notes Date Note Type Note Provider Name and Address Organization Details Recorded Time 01/29/2024 text/html He noted some ac [place] voice change on 07/19. He had laryngitis. [...] is not inconsistent. TOMÁS ASKEW MD 100 [facility],[address], [address], [place] - [facility] 01/29/2024 12:02:19 06/03/2024 text/html He noted some ac [place] voice change on 07/19. He had laryngitis. [...] is not inconsistent. TOMÁS ASKEW MD 100 [facility],[address] [address], [place], [address], [place] [facility] 06/03/2024 10:37:33 OBGyn Episode No OBEpisode recorded.
== END 2024-11-11 11:04 | disposition home or self-care (01) ==
LOC: HO.HOP 09:37
PROVIDERS: PCP Internal Medicine; Visit Provider Clinical Nurse Specialist Psychiatric/Mental Health
DX: F31.32 Bipolar disorder, current episode depressed, moderate (principal); F41.0 Panic disorder [episodic paroxysmal anxiety]; F43.10 Post-traumatic stress disorder, unspecified; F42.2 Mixed obsessional thoughts and acts
CPT/HCPCS: 99214

== ENCOUNTER → 2024-11-11 09:37 | Outpatient (BNVA) | payer OTHER, SELFPAY | PROVIDERS: PCP Internal Medicine; Visit Provider Clinical Nurse Specialist Psychiatric/Mental Health | DX: F31.32 Bipolar disorder, current episode depressed, moderate (principal); F41.0 Panic disorder [episodic paroxysmal anxiety]; F43.10 Post-traumatic stress disorder, unspecified; F42.9 Obsessive-compulsive disorder, unspecified; Z71.89 Other specified counseling | CPT/HCPCS: 99212 ==

== ENCOUNTER 2024-12-09 09:32 | Outpatient (AMB) | payer OTHER, SELFPAY ==
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
--- OUTSIDE RECORDS SUMMARY | 2024-12-09 10:27 | XMS_ITS | Data Portability ---
Author Organization [place] - [facility], Allergy Address [address] [place] [address] Care Team Providers Care Computer Numerical Control Operator Name Role Phone DICKSON CHU Primary Care Provider Assessment No assessment recorded. Plan of Treatment Reminders Order Date Submit Date Provider Last Modified By Organization Details Last Modified Time Details Appointments None recorded . Lab None recorded . Referral speech therapy referral - Appt 06/13 @ 12pm 2023 024 [facility], [facility] Isabelle Acuña, [address], [place], [address], 4 11:27:23 Procedures None recorded . Surgeries None recorded . Imaging None recorded . Medication Orders omeprazo le 20 mg capsule, delayed release 2023 024 [facility]/Pharmacy #[id number], [phone] [place], [address], 4 12:02:19 Patient TargetsNo targets recorded. Patient InstructionsNo instructions recorded. Reason for Referral Appt 06/13 @ 12pm Referring Physician: Tomás Askew, Otolaryngology, Encounter Date: 06/03/2024 Problems Name Problem SNOMED Code Status Onset Date Resolution Date Notes Provider Name and Address Organization Details Recorded Time Chronic hoarseness 8979884254227 Active 2023 TOMÁS Whyte MD [address], [address] [place] - [facility] 4 11:52:35 Chronic laryngitis 78580538 Active 2023 TOMÁS Whyte MD [address] [address], [place], [address], [facility] - [facility] [place] 11:55:40 Gastroesoph ageal reflux disease without esophagitis 291776287 Active 2023 TOMÁS Whyte MD [address] [address], [place], [address], [facility] - [facility] [place] 12:00:10 Problem Notes None recorded. Procedures Surgical History Date Name Laterality Status Provider Name and Address Organization Details Recorded Time 06/03/2024 FFL_RE completed TOMÁS ASKEW MD [address] [place] [address], [phone], [facility] [place] 06/03/2024 10:29:17 01/29/2024 FFL_RE completed TOMÁS ASKEW MD [address] [place] [address], [phone], [facility] 01/29/2024 12:01:29 Imaging Results None recorded. [...] Updated DateTime 01/29/2024 167.64 cm 27.4 kg/m2 89244.7 g Anjum Greene [facility] 01/29/2024 11:39:30 Date Recorded Body height Body mass index (BMI) Body weight Provider Name and Address Organization Details Last Updated DateTime 06/03/2024 167.64 cm 26 kg/m2 95191.37 g Anjum Greene [facility] 06/03/2024 10:04:52 Social History None recorded. [...] Note [id number] TOMÁS ASKEW MD [facility] [address] [address] 01/29/2024 10:39:30 01/29/2024 12:26:38 Chronic hoarseness [id number] 105 R49.0 see below. will consider voice therapy if not improved. Chronic laryngitis 53244 006 J37.0 No lesions. Inflammati on noted of arytenoids and posterior pharyngeal wall. Will treat for reflux and reevaluate . Gastroesop hageal reflux disease without esophagitis 183630692 K21.9 Exam was benign. Laryngosco py showed [place] ing. I feel the symptoms are likely due to extra esophageal reflux disease. We will begin a six-week trial of omeprazole which was sent to their pharmacy. We will plan a follow up in 3-4 months to reassess. [id number] TOMÁS ASKEW MD [facility] [address] [address] 06/03/2024 09:49:39 06/03/2024 10:38:38 Chronic hoarseness 8412092663 105 R49.0 Laryngosco py normal. I will refer for voice therapy. Chronic laryngitis 34523 006 J37.0 Appears improved. Gastroesop hageal reflux disease without esophagitis 293081619 K21.9 Throat pain has improved on omeprazole . He will continue omeprazole for now. Throat pain is likely due to EERD. Once he finishes his current course of omeprazole he should taper off. Health Concerns Section Related Observation LastModified by Organization Detai ls LastModified Time None Recorded Concern Status LastModified by Organization Details LastModified Time None Recorded Advance Directives Directive None Recorded Payers Insurance Date Sequence Insurance Name Policy Number Policy Douglass Covered Member ID Douglass Member ID Guarantor Name 06/03/2024 1 [facility] - DOS ON OR AFTER 2022 - ONE CARE (MEDICARE REPLACEMENT/ADV ANTAGE - HMO) Eliazar Freeman [id number] Eliazar Freeman 02/02/2024 1 [facility] IPA - [facility] (MEDICARE REPLACEMENT/ADV ANTAGE - HMO) Eliazar Freeman [id number] Eliazar Freeman Notes Date Note Type Note Provider Name and Address Organization Details Recorded Time 01/29/2024 text/html He noted some ac [place] voice change on 07/19. He had laryngitis. [...] is not inconsistent. TOMÁS ASKEW MD 100 [facility],[address], [address], [place] - [facility] 01/29/2024 12:02:19 06/03/2024 text/html He noted some ac [place] voice change on 07/19. He had laryngitis. [...] is not inconsistent. TOMÁS ASKEW MD 100 [facility],[address] [address], [place], [address], [place] [facility] 06/03/2024 10:37:33 OBGyn Episode No OBEpisode recorded.
== END 2024-12-09 12:06 | disposition home or self-care (01) ==
LOC: HO.HOP 09:32
PROVIDERS: PCP Internal Medicine; Visit Provider Clinical Nurse Specialist Psychiatric/Mental Health
DX: F31.32 Bipolar disorder, current episode depressed, moderate (principal); F41.0 Panic disorder [episodic paroxysmal anxiety]; F43.10 Post-traumatic stress disorder, unspecified; F42.2 Mixed obsessional thoughts and acts
CPT/HCPCS: 99214

== ENCOUNTER → 2024-12-09 09:32 | Outpatient (BNVA) | payer OTHER, SELFPAY | PROVIDERS: PCP Internal Medicine; Visit Provider Clinical Nurse Specialist Psychiatric/Mental Health | DX: F31.32 Bipolar disorder, current episode depressed, moderate (principal); F41.0 Panic disorder [episodic paroxysmal anxiety]; F43.10 Post-traumatic stress disorder, unspecified; F42.2 Mixed obsessional thoughts and acts | CPT/HCPCS: 99212 ==

== ENCOUNTER 2025-01-15 09:37 | Outpatient (AMB) | payer OTHER, SELFPAY ==
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
--- OUTSIDE RECORDS SUMMARY | 2025-01-15 10:41 | XMS_ITS | Data Portability ---
Author Organization [place] - [facility], Allergy Address [address] [place] [address] Care Team Providers Care Product Marketing Specialist Name Role Phone DICKSON CHU Primary Care Provider Assessment No assessment recorded. Plan of Treatment Reminders Order Date Submit Date Provider Last Modified By Organization Details Last Modified Time Details Appointments None recorded . Lab None recorded . Referral speech therapy referral - Appt 06/13 @ 12pm 2023 024 [facility], [address], [address], [place], [address], 4 11:27:23 Procedures None recorded . Surgeries None recorded . Imaging None recorded . Medication Orders omeprazo le 20 mg capsule, delayed release 2023 024 [facility]/Pharmacy #[id number], [phone] [place], [address], 4 12:02:19 Patient TargetsNo targets recorded. Patient InstructionsNo instructions recorded. Reason for Referral Appt 06/13 @ 12pm Referring Physician: Tomás Askew, Otolaryngology, Encounter Date: 06/03/2024 Problems Name Problem SNOMED Code Status Onset Date Resolution Date Notes Provider Name and Address Organization Details Recorded Time Chronic hoarseness 8532967152203 Active 2023 TOMÁS Whyte MD [address] [address], [place], [address] [facility] [place] - [facility] 4 11:52:35 Chronic laryngitis 97346724 Active 2023 TOMÁS Whyte MD [address] [address], [place], [address], [facility] - [facility] 4 11:55:40 Gastroesoph ageal reflux disease without esophagitis 720390768 Active 2023 TOMÁS Whyte MD [address] [address], [place], [address], [facility] - [facility] 4 12:00:10 Problem Notes None recorded. Procedures Surgical History Date Name Laterality Status Provider Name and Address Organization Details Recorded Time 06/03/2024 FFL_RE completed TOMÁS ASKEW MD [address] [place] [address], [phone], [facility] 06/03/2024 10:29:17 01/29/2024 FFL_RE completed TOMÁS ASKEW MD [address] [place] [address], [phone], [facility] 01/29/2024 12:01:29 Imaging Results None recorded. [...] Updated DateTime 01/29/2024 167.64 cm 27.4 kg/m2 33966.7 g [facility] 01/29/2024 11:39:30 Date Recorded Body height Body mass index (BMI) Body weight Provider Name and Address Organization Details Last Updated DateTime 06/03/2024 167.64 cm 26 kg/m2 67247.37 g Anjum Greene [facility] 06/03/2024 10:04:52 Social History None recorded. [...] Note [id number] TOMÁS ASKEW MD [facility] [address] [address] 01/29/2024 10:39:30 01/29/2024 12:26:38 Chronic hoarseness 8801724241 105 R49.0 see below. will consider voice therapy if not improved. Chronic laryngitis 83979 006 J37.0 No lesions. Inflammati on noted of arytenoids and posterior pharyngeal wall. Will treat for reflux and reevaluate . Gastroesop hageal reflux disease without esophagitis [id number] K21.9 Exam was benign. Laryngosco py showed cobbleston ing. I feel the symptoms are likely due to extra esophageal reflux disease. We will begin a six-week trial of omeprazole which was sent to their pharmacy. We will plan a follow up in 3-4 months to reassess. [id number] TOMÁS ASKEW MD [facility] [address] [address] 06/03/2024 09:49:39 06/03/2024 10:38:38 Chronic hoarseness [id number] 105 R49.0 Laryngosco py normal. I will refer for voice therapy. Chronic laryngitis 66128 006 J37.0 Appears improved. Gastroesop hageal reflux disease without esophagitis 111839212 K21.9 Throat pain has improved on omeprazole [...] Douglass Member ID Guarantor Name 06/03/2024 1 [facility] - DOS ON OR AFTER 2022 - ONE CARE (MEDICARE REPLACEMENT/ADV ANTAGE - HMO) Eliazar Freeman [id number] Eliazar Freeman 02/02/2024 1 [facility] - [facility] [place] (MEDICARE REPLACEMENT/ADV ANTAGE - HMO) Eliazar Freeman [id number] Eliazar Freeman Notes Date Note Type Note Provider Name and Address Organization Details Recorded Time 01/29/2024 text/html He noted some ac [place] voice change on 07/19. He had laryngitis. [...] is not inconsistent. TOMÁS ASKEW MD 100 [facility],[address], [address], [place] - [facility] 01/29/2024 12:02:19 06/03/2024 text/html He noted some ac [place] voice change on 07/19. He had laryngitis. [...] is not inconsistent. TOMÁS ASKEW MD 100 [facility],[address] [address], [place], [address], [place] - [facility] 06/03/2024 10:37:33 OBGyn Episode No OBEpisode recorded.
== END 2025-01-15 10:38 | disposition home or self-care (01) ==
LOC: HO.HOP 09:37
PROVIDERS: PCP Internal Medicine; Visit Provider Clinical Nurse Specialist Psychiatric/Mental Health
DX: F42.2 Mixed obsessional thoughts and acts (principal); F43.10 Post-traumatic stress disorder, unspecified; F41.0 Panic disorder [episodic paroxysmal anxiety]; F31.32 Bipolar disorder, current episode depressed, moderate; R44.0 Auditory hallucinations
CPT/HCPCS: 99214

== ENCOUNTER → 2025-01-15 09:37 | Outpatient (BNVA) | payer OTHER, SELFPAY | PROVIDERS: PCP Internal Medicine; Visit Provider Clinical Nurse Specialist Psychiatric/Mental Health | DX: F31.32 Bipolar disorder, current episode depressed, moderate (principal); F41.0 Panic disorder [episodic paroxysmal anxiety]; F43.10 Post-traumatic stress disorder, unspecified; F42.2 Mixed obsessional thoughts and acts | CPT/HCPCS: 99212 ==

== ENCOUNTER 2025-02-16 09:51 | Outpatient (AMB) | payer OTHER, SELFPAY ==
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
--- OUTSIDE RECORDS SUMMARY | 2025-02-16 10:49 | XMS_ITS | Data Portability ---
Author Organization [place] - [facility], Allergy Address [address] [place] [address] Care Team Providers Care Tugboat Dispatcher Name Role Phone DICKSON CHU Primary Care Provider [phone] Assessment No assessment recorded. Plan of Treatment Reminders Order Date Submit Date Provider Last Modified By Organization Details Last Modified Time Details Appointments None recorded . Lab None recorded . Referral speech therapy referral - Appt 06/13 @ 12pm 2023 024 [facility], [address], [address], [place], [address], 4 11:27:23 Procedures None recorded . Surgeries None recorded . Imaging None recorded . Medication Orders omeprazo le 20 mg capsule, delayed release 2023 024 [facility]/Pharmacy #[id number], [phone] [place], [address], 4 12:02:19 Patient TargetsNo targets recorded. Patient InstructionsNo instructions recorded. Reason for Referral Appt 06/13 @ 12pm Referring Physician: Tomás Askew, Otolaryngology, Encounter Date: 06/03/2024 Problems Name Problem SNOMED Code Status Onset Date Resolution Date Notes Provider Name and Address Organization Details Recorded Time Chronic hoarseness 1890040389690 Active 2023 TOMÁS Whyte MD [address] [address], [place], [address] [facility] [place] - [facility] 4 11:52:35 Chronic laryngitis 50324304 Active 2023 TOMÁS Whyte MD [address] [address], [place], [address], [facility] - [facility] 4 11:55:40 Gastroesoph ageal reflux disease without esophagitis 050297334 Active 2023 TOMÁS Whyte MD [address] [address], [place], [address], [facility] - [facility] 4 12:00:10 Problem Notes None recorded. Procedures Surgical History Date Name Laterality Status Provider Name and Address Organization Details Recorded Time 06/03/2024 FFL_RE completed TOMÁS ASKEW MD [address] [place] [address], [phone], [facility] 06/03/2024 10:29:17 01/29/2024 FFL_RE completed TOMÁS ASKEW MD [address] [place] [address], [phone], [facility] 01/29/2024 [...] Updated DateTime 01/29/2024 167.64 cm 27.4 kg/m2 12689.7 g [facility] 01/29/2024 11:39:30 Date Recorded Body height Body mass index (BMI) Body weight Provider Name and Address Organization Details Last Updated DateTime 06/03/2024 167.64 cm 26 kg/m2 31237.37 g Anjum Greene [facility] [...] Note [id number] TOMÁS ASKEW MD [facility] [address] [address] 01/29/2024 10:39:30 01/29/2024 12:26:38 Chronic hoarseness 7401079088 105 R49.0 see below. will consider voice therapy if not improved. Chronic laryngitis 52778 006 J37.0 No lesions. Inflammati on noted of arytenoids and posterior pharyngeal wall. Will treat for reflux and reevaluate . Gastroesop hageal reflux disease without esophagitis [id number] K21.9 Exam was benign. Laryngosco py showed cobbl[place] ing. I feel the symptoms are likely due to extra esophageal reflux disease. We will begin a six-week trial of omeprazole which was sent to their pharmacy. We will plan a follow up in 3-4 months to reassess. [id number] TOMÁS ASKEW MD [facility] [address] [address] 06/03/2024 09:49:39 06/03/2024 10:38:38 Chronic hoarseness 9443724683 105 R49.0 Laryngosco py normal. I will refer for voice therapy. Chronic laryngitis 09646 006 J37.0 Appears improved. Gastroesop hageal reflux disease without esophagitis 950488084 K21.9 Throat pain has improved on omeprazole [...] Douglass Member ID Guarantor Name 06/03/2024 1 [facility] - DOS ON OR AFTER 2022 - ONE CARE (MEDICARE REPLACEMENT/ADV ANTAGE - HMO) Eliazar Freeman [id number] Eliazar Freeman 02/02/2024 1 [facility] - [facility] [place] (MEDIC[place]PLACEMENT/ADV ANTAGE - HMO) Eliazar Freeman [id number] Eliazar Freeman OBGyn Episode No OBEpisode recorded.
--- OUTSIDE RECORDS SUMMARY | 2025-02-16 10:49 | XMS_ITS | Clinical Summary ---
Author Organization [facility] [address] [facility] Address [address] [place] [address] Phone Care Team Providers Care Certified Genetic Counselor Name Role Phone Randall Rodriguez MD Primary Care Provider [phone] Encounters Date Type Department Care Team Description 01/15/2025 Telephone Gastroenterology - [address] [phone] Jose Miguel Muhammad MD Consult Appointment from Last 3 Months Medical History Medical History Date Comments Asthma DX:Asthma Family History Medical History Relation Name Comments Diabetes Brother Diabetes Father Hypertension Father Prostate cancer Father Diabetes Mother Hypertension Mother Relation Name Status Comments Brother Father Alive Mother Social History Tobacco Use Types Packs/Day Years Used Date Smoking Tobacco: Never Smokeless Tobacco: Never Alcohol Use Standard Drinks/Week Comments No 0 (1 standard drink = 0.6 oz pur e alcohol) Sex and Gender Information Value Date Recorded Sex Assigned at Male 01/15/2025 1:37 PM EDT Legal Sex Male 4:31 AM EST Gender Identity Male 01/15/2025 1:37 PM EDT Sexual Orientation Not on file Obstetrics History Plan of Treatment Upcoming Encounters Date Type Department Care Team (Late st Contact Info) Description 03/11/2025 9:20 AM EDT Consult Gastroenterology - [address] [address] Madelin Rosenberg PA [address] [address] Health Maintenance Due Date Last Done Comments DTaP,Tdap,and Td Vaccines (1 - Tdap) 1997 Hepatitis B Vaccines (1 of 3 - 19+ 3-dose series) 1997 Cholesterol Screening (Lipid Panel) 06/25/2022 Colorectal Cancer Screening: Colonoscopy 06/25/2022 HIV Screening 06/25/2022 Hepatitis C Screening 06/25/2022 Social Influencers of Health Screening 06/25/2022 COVID-19 Vaccine (1 - 2023-2 5 season) 2024 Depression Screening 07/23/2024 Influenza Vaccine (#1) 2025 HIB Vaccines Aged Out No longer eligi ble based on patient's age to complete this topic HPV Vaccines Aged Out No longer eligi ble based on patient's age to complete this topic Hepatitis A Vaccines Aged Out No long er eligible based on patient's age to complete this topic IPV Vaccines Aged Out No longer eligi ble based on patient's age to complete this topic MMR Vaccines Aged Out No longer eligi ble based on patient's age to complete this topic Meningococcal ACWY Vaccine Aged Out N o longer eligible based on patient's age to complete this topic Meningococcal B Vaccine Aged Out No l onger eligible based on patient's age to complete this topic Pneumococcal Vaccine: Pediat rics (0 to 5 Years) and At-Risk Patients (6 to 49 Years) Aged Out No longer eligible b ased on patient's age to complete this topic RSV Immunization Patients Un kim 20 months Aged Out No longer eligible b ased on patient's age to complete this topic Varicella Vaccines Aged Out No longer eligible based on patient's age to complete this topic Insurance [place]ICA[place] - [place] Care Teams Certified Genetic Counselor Relationship Specialty Start Date End Date Randall Rodriguez MD [address] [place] [address] PCP - General Internal Medicine 01/07/19
== END 2025-02-16 10:40 | disposition home or self-care (01) ==
LOC: HO.HOP 09:51
PROVIDERS: PCP Internal Medicine; Visit Provider Clinical Nurse Specialist Psychiatric/Mental Health
DX: F42.2 Mixed obsessional thoughts and acts (principal); F43.10 Post-traumatic stress disorder, unspecified; F41.0 Panic disorder [episodic paroxysmal anxiety]; F31.32 Bipolar disorder, current episode depressed, moderate
CPT/HCPCS: 90833; 99213

== ENCOUNTER → 2025-02-16 09:51 | Outpatient (BNVA) | payer OTHER, SELFPAY | PROVIDERS: PCP Internal Medicine; Visit Provider Clinical Nurse Specialist Psychiatric/Mental Health | DX: F42.2 Mixed obsessional thoughts and acts (principal); F43.10 Post-traumatic stress disorder, unspecified; F31.32 Bipolar disorder, current episode depressed, moderate; F41.0 Panic disorder [episodic paroxysmal anxiety] | CPT/HCPCS: 99212 ==

== ENCOUNTER 2025-03-02 13:14 | Outpatient (AMB) | payer OTHER, SELFPAY ==
--- OUTSIDE RECORDS SUMMARY | 2025-03-02 13:25 | XMS_ITS | Clinical Summary ---
Author Organization [facility] Address [address] [place] [address] Phone Care Team Providers Care Binding Nicker Name Role Phone Randall Rodriguez MD Primary Care Provider [phone] Encounters Date Type Department Care Team Description 01/15/2025 Telephone Gastroenterology - [address] [address] Jose Miguel Muhammad MD Consult [...] 9:20 AM EDT Consult Gastroenterology - [address] [address] Madelin Rosenberg PA [address] [address] Health Maintenance Due Date Last [...] topic Insurance MEDICAID - [place] Care Teams Binding Nicker Relationship Specialty Start Date End Date Randall Rodriguez MD [address] [place] [address] PCP - General Internal Medicine 01/07/19
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
== END 2025-03-02 14:35 | disposition home or self-care (01) ==
LOC: HO.HOP 13:14
PROVIDERS: PCP Internal Medicine; Visit Provider Clinical Nurse Specialist Psychiatric/Mental Health
DX: F42.2 Mixed obsessional thoughts and acts (principal); F43.10 Post-traumatic stress disorder, unspecified; F41.0 Panic disorder [episodic paroxysmal anxiety]; F31.32 Bipolar disorder, current episode depressed, moderate
CPT/HCPCS: 90833; 99213

== ENCOUNTER → 2025-03-02 13:14 | Outpatient (BNVA) | payer OTHER, SELFPAY | PROVIDERS: PCP Internal Medicine; Visit Provider Clinical Nurse Specialist Psychiatric/Mental Health | DX: F31.32 Bipolar disorder, current episode depressed, moderate (principal); F41.0 Panic disorder [episodic paroxysmal anxiety]; F43.10 Post-traumatic stress disorder, unspecified; F42.2 Mixed obsessional thoughts and acts | CPT/HCPCS: 99212 ==

== ENCOUNTER 2025-04-02 13:06 | Outpatient (AMB) | payer OTHER, SELFPAY ==
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
== END 2025-04-02 13:32 | disposition home or self-care (01) ==
LOC: HO.HOP 13:06
PROVIDERS: PCP Internal Medicine; Visit Provider Clinical Nurse Specialist Psychiatric/Mental Health
DX: F42.2 Mixed obsessional thoughts and acts (principal); F43.10 Post-traumatic stress disorder, unspecified; F41.0 Panic disorder [episodic paroxysmal anxiety]; F31.32 Bipolar disorder, current episode depressed, moderate
CPT/HCPCS: 99214

== ENCOUNTER → 2025-04-02 13:06 | Outpatient (BNVA) | payer OTHER, SELFPAY | PROVIDERS: PCP Internal Medicine; Visit Provider Clinical Nurse Specialist Psychiatric/Mental Health | DX: F42.2 Mixed obsessional thoughts and acts (principal); F42.9 Obsessive-compulsive disorder, unspecified; F43.10 Post-traumatic stress disorder, unspecified; F41.0 Panic disorder [episodic paroxysmal anxiety]; F31.32 Bipolar disorder, current episode depressed, moderate | CPT/HCPCS: 99212 ==

== ENCOUNTER 2025-05-11 10:09 | Outpatient (AMB) | payer OTHER, SELFPAY ==
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
== END 2025-05-11 11:09 | disposition home or self-care (01) ==
LOC: HO.HOP 10:09
PROVIDERS: PCP Internal Medicine; Visit Provider Clinical Nurse Specialist Psychiatric/Mental Health
DX: F42.9 Obsessive-compulsive disorder, unspecified (principal); F43.10 Post-traumatic stress disorder, unspecified; F41.0 Panic disorder [episodic paroxysmal anxiety]; F31.32 Bipolar disorder, current episode depressed, moderate
CPT/HCPCS: 99214

== ENCOUNTER → 2025-05-11 10:09 | Outpatient (BNVA) | payer OTHER, SELFPAY | PROVIDERS: PCP Internal Medicine; Visit Provider Clinical Nurse Specialist Psychiatric/Mental Health | DX: F31.32 Bipolar disorder, current episode depressed, moderate (principal); F43.10 Post-traumatic stress disorder, unspecified; F41.0 Panic disorder [episodic paroxysmal anxiety]; F42.9 Obsessive-compulsive disorder, unspecified | CPT/HCPCS: 99212 ==

== ENCOUNTER 2025-06-08 09:06 | Outpatient (AMB) | payer OTHER, SELFPAY ==
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
== END 2025-06-08 10:03 | disposition home or self-care (01) ==
LOC: HO.HOP 09:06
PROVIDERS: PCP Internal Medicine; Visit Provider Clinical Nurse Specialist Psychiatric/Mental Health
DX: F42.2 Mixed obsessional thoughts and acts (principal); F43.10 Post-traumatic stress disorder, unspecified; F41.0 Panic disorder [episodic paroxysmal anxiety]; F31.32 Bipolar disorder, current episode depressed, moderate
CPT/HCPCS: 99214

== ENCOUNTER → 2025-06-08 09:06 | Outpatient (BNVA) | payer OTHER, SELFPAY | PROVIDERS: PCP Internal Medicine; Visit Provider Clinical Nurse Specialist Psychiatric/Mental Health | DX: F42.2 Mixed obsessional thoughts and acts (principal); F31.32 Bipolar disorder, current episode depressed, moderate; F43.10 Post-traumatic stress disorder, unspecified; F41.0 Panic disorder [episodic paroxysmal anxiety] | CPT/HCPCS: 99212 ==

== ENCOUNTER 2025-07-06 09:30 | Outpatient (AMB) | payer OTHER, SELFPAY ==
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
== END 2025-07-06 10:15 | disposition home or self-care (01) ==
LOC: HO.HOP 09:30
PROVIDERS: Visit Provider Clinical Nurse Specialist Psychiatric/Mental Health
DX: F31.32 Bipolar disorder, current episode depressed, moderate (principal); F42.2 Mixed obsessional thoughts and acts; F43.11 Post-traumatic stress disorder, acute; F41.0 Panic disorder [episodic paroxysmal anxiety]
CPT/HCPCS: 99215

== ENCOUNTER → 2025-07-06 09:30 | Outpatient (BNVA) | payer OTHER, SELFPAY | PROVIDERS: Visit Provider Clinical Nurse Specialist Psychiatric/Mental Health | DX: F42.2 Mixed obsessional thoughts and acts (principal); F43.10 Post-traumatic stress disorder, unspecified; F41.0 Panic disorder [episodic paroxysmal anxiety]; F31.32 Bipolar disorder, current episode depressed, moderate | CPT/HCPCS: 99212 ==